=== PATIENT | female | born 1985 | race Caucasian/White ===

== ENCOUNTER → 2022-06-16 | Outpatient (CLI) | payer BC ==
[2022-06-16 13:08] LABS: BASOPHILS % 0.4 % (0.0-2.0); EOSINOPHILS % 4.1 % (0.0-5.0); HEMATOCRIT. 38.8 % (36.0-48.0); HEMOGLOBIN. 12.7 g/dL (12.0-16.0); LYMPHOCYTES % 28.3 % (20.0-50.0); MEAN CORPUSCULAR HEMOGLOBIN 26.9 pg (28.0-32.0); MEAN CORPUSCULAR VOLUME 82.3 fL (81.0-99.0); MEAN PLATELET VOLUME 7.9 fl (7.4-10.4); MONOCYTES % 7.5 % (2.0-8.0); NEUTROPHILS % 59.7 % (40.0-76.0); PLATELET 278 x1000/uL (130-400); RED BLOOD CELL COUNT 4.71 mill/uL (4.2-5.4); RED CELL DISTRIBUTION WIDTH 15.2 % (11.6-14.6)
[2022-06-16 13:37] LABS: B-HCG QUANTITATIVE 4612 mIU/mL (<3)
[2022-06-16 14:10] LABS: HEPATITIS B SURFACE AB 74.4 mIU/mL
[2022-06-17 08:10] LABS: HIV SCREEN 4G Non Reactive (Non Reactive)
== END | disposition home or self-care (01) ==
LOC: LAB 12:31
PROVIDERS: ATTEND Obstetrics & Gynecology Gynecology
DX: Z34.00 Encounter for supervision of normal first pregnancy, unspecified trimester (principal); N39.0 Urinary tract infection, site not specified; Z3A.00 Weeks of gestation of pregnancy not specified
CPT/HCPCS: 36415; 82947; 84702; 85025; 86592; 86706; 86762; 86803; 86850; 86900; 87389

== ENCOUNTER → 2022-06-22 | Outpatient (CLI) | payer BC | END | disposition home or self-care (01) | LOC: US 09:25 | PROVIDERS: ATTEND Obstetrics & Gynecology Gynecology | DX: Z34.91 Encounter for supervision of normal pregnancy, unspecified, first trimester (principal); Z3A.01 Less than 8 weeks gestation of pregnancy | CPT/HCPCS: 76801 ==

== ENCOUNTER → 2022-07-06 | Outpatient (CLI) | payer BC | END | disposition home or self-care (01) | LOC: LAB 10:32 | PROVIDERS: ATTEND Obstetrics & Gynecology Gynecology | DX: N93.9 Abnormal uterine and vaginal bleeding, unspecified (principal) | CPT/HCPCS: 76801 ==

== ENCOUNTER → 2022-07-12 | Day surgery (SDC) | payer BC | END | disposition home or self-care (01) | LOC: LAB 11:56 | PROVIDERS: ATTEND Obstetrics & Gynecology Gynecology | DX: Z34.00 Encounter for supervision of normal first pregnancy, unspecified trimester (principal); Z79.899 Other long term (current) drug therapy | CPT/HCPCS: 36415; 84702 ==

== ENCOUNTER → 2022-07-21 | Outpatient (CLI) | payer BC | END | disposition home or self-care (01) | LOC: LAB 13:20 | PROVIDERS: ATTEND Obstetrics & Gynecology Gynecology | DX: O03.9 Complete or unspecified spontaneous abortion without complication (principal) | CPT/HCPCS: 36415; 84702 ==

== ENCOUNTER → 2023-03-16 | Outpatient (CLI) | payer BC ==
[2023-03-16 07:48] LABS: BASOPHILS % 0.6 % (0.0-2.0); EOSINOPHILS % 3.4 % (0.0-5.0); HEMATOCRIT. 38.6 % (36.0-48.0); HEMOGLOBIN. 12.9 g/dL (12.0-16.0); LYMPHOCYTES % 24.5 % (20.0-50.0); MEAN CORPUSCULAR HEMOGLOBIN 27.3 pg (28.0-32.0); MEAN CORPUSCULAR VOLUME 81.9 fL (81.0-99.0); NEUTROPHILS % 65.5 % (40.0-76.0); PLATELET 276 x1000/uL (130-400); RED BLOOD CELL COUNT 4.71 mill/uL (4.2-5.4); RED CELL DISTRIBUTION WIDTH 15.5 % (11.6-14.6)
[2023-03-16 08:12] LABS: CHLORIDE 110 mEq/L (98-107)
[2023-03-16 08:33] LABS: B-HCG QUANTITATIVE 5959 mIU/mL (<3); HDL CHOLESTEROL 45 mg/dL (40-59); LDL CHOLESTEROL 119 mg/dL (5-100)
== END | disposition home or self-care (01) ==
LOC: LAB 06:55
PROVIDERS: ATTEND Family Medicine
DX: O00.01 Abdominal pregnancy with intrauterine pregnancy (principal)
CPT/HCPCS: 36415; 80053; 80061; 84443; 84702; 85025

== ENCOUNTER → 2023-03-30 | Outpatient (CLI) | payer BC ==
[2023-03-30 09:01] LABS: BASOPHILS % 0.8 % (0.0-2.0); EOSINOPHILS % 3.8 % (0.0-5.0); HEMATOCRIT. 39.2 % (36.0-48.0); HEMOGLOBIN. 13.1 g/dL (12.0-16.0); LYMPHOCYTES % 27.2 % (20.0-50.0); MEAN CORPUSCULAR HEMOGLOBIN 27.4 pg (28.0-32.0); MEAN CORPUSCULAR VOLUME 82.2 fL (81.0-99.0); MEAN PLATELET VOLUME 8.4 fl (7.4-10.4); MONOCYTES % 5.9 % (2.0-8.0); NEUTROPHILS % 62.3 % (40.0-76.0); PLATELET 302 x1000/uL (130-400); RED BLOOD CELL COUNT 4.77 mill/uL (4.2-5.4); RED CELL DISTRIBUTION WIDTH 15.3 % (11.6-14.6)
[2023-03-30 09:03] LABS: CLARITY URINE CLOUDY (CLEAR); COLOR URINE YELLOW (YELLOW); KETONES URINE NEGATIVE (NEGATIVE); LEUKOCYTE ESTERASE URINE NEGATIVE (NEGATIVE); NITRITE URINE NEGATIVE (NEGATIVE); OCCULT BLOOD URINE NEGATIVE (NEGATIVE); PROTEIN URINE NEGATIVE (NEGATIVE); SPECIFIC GRAVITY URINE 1.024 (1.005-1.030); UROBILINOGEN URINE 0.2 E.U./dL (0.2-1.0)
[2023-03-30 09:48] LABS: B-HCG QUANTITATIVE 14222 mIU/mL (<3)
[2023-04-04 09:07] LABS: HIV SCREEN 4G Non Reactive (Non Reactive)
== END | disposition home or self-care (01) ==
LOC: LAB 07:18
PROVIDERS: ATTEND Obstetrics & Gynecology Gynecology
DX: O26.91 Pregnancy related conditions, unspecified, first trimester (principal); R10.2 Pelvic and perineal pain; Z3A.08 8 weeks gestation of pregnancy
CPT/HCPCS: 36415; 76801; 81003; 82947; 84702; 85025; 86592; 86762; 86803; 86850; 86900; 87389; 87517

== ENCOUNTER → 2023-04-17 | Outpatient (CLI) | payer BC | END | disposition home or self-care (01) | LOC: US 08:37 | PROVIDERS: ATTEND Obstetrics & Gynecology Gynecology | DX: N93.9 Abnormal uterine and vaginal bleeding, unspecified (principal) | CPT/HCPCS: 76801 ==